=== PATIENT | female | born 1960 | race Caucasian/White ===

== ENCOUNTER → 2023-12-22 | Day surgery (SDC) | payer OTHER | END | disposition home or self-care (01) | LOC: JMAMMO-SUR 09:44 | PROVIDERS: ATTEND Surgery | PROC: BH00ZZZ Plain Radiography of Right Breast (ICD-10-PCS; principal; 2023-12-22) | DX: N63.10 Unspecified lump in the right breast, unspecified quadrant (principal) | CPT/HCPCS: 19281; A4648 ==

== ENCOUNTER 2023-12-25 04:28 | Day surgery (SDC) | payer OTHER ==
[2023-12-23 15:43] VITALS: BMI 27.4
[2023-12-25] MEDS ORDERED: MIDAZOLAM HCL 2 MG/2 ML SINGLE DOSE VIAL ONE (11:36)
[2023-12-25] MEDS ORDERED: FENTANYL CITRATE/PF 50 MCG/ML VIAL ONE (11:36)
[2023-12-25] MEDS ORDERED: PROPOFOL 40 ML ONE (11:59)
[2023-12-25] MEDS ORDERED: SUCCINYLCHOLINE CHLORIDE 200 MG/10 ML SYRINGE ONE (11:59)
[2023-12-25] MEDS ORDERED: ONDANSETRON 4 MG/2 ML VIAL ONE (12:09)
[2023-12-25] MEDS ORDERED: ceFAZolin SODIUM 1 GM VIAL ONE (12:09)
[2023-12-25] MEDS ORDERED: DEXAMETHASONE SOD PHOSPHATE 4 MG/1 ML VIAL ONE (12:09)
[2023-12-25] MEDS: ceFAZolin SODIUM 1 GM VIAL IVPB ONE (12:11)
[2023-12-25] MEDS: LIDOCAINE HCL 1%, 10 MG/ML (20ML VIAL) INF ONE ×2 (12:25)
[2023-12-25] MEDS ORDERED: oxyCODONE HCL 5 MG TABLET PO PRN (13:17)
[2023-12-25] MEDS ORDERED: LACTATED RINGERS SOLUTION 1,000 ML IV SCH (13:30)
[2023-12-25 16:26] VITALS: RESP 18; TEMP 97.8
[2023-12-25 16:45] VITALS: BP 132/64; PULSE 66
== END 2023-12-25 16:50 | disposition home or self-care (01) ==
LOC: JASU-SURG 04:28
PROVIDERS: ATTEND Surgery
PROC: 0HBT0ZX Excision of Right Breast, Open Approach, Diagnostic (ICD-10-PCS; principal; 2023-12-25 11:00)
DX: D05.11 Intraductal carcinoma in situ of right breast (principal)
CPT/HCPCS: 76098-TC-FY; 82962; 88307-TC; 88342-TC; 94760

== ENCOUNTER 2024-01-22 08:11 | Day surgery (SDC) | payer OTHER ==
[2024-01-19 11:57] VITALS: BMI 27.4
[2024-01-22] MEDS ORDERED: MIDAZOLAM HCL 2 MG/2 ML SINGLE DOSE VIAL ONE (08:16)
[2024-01-22] MEDS ORDERED: PROPOFOL 20 ML ONE (08:16)
[2024-01-22] MEDS ORDERED: oxyCODONE HCL 5 MG TABLET PO PRN (08:24)
[2024-01-22] MEDS ORDERED: ACETAMINOPHEN 1000 MG/100 ML BAG IVPB PRN (08:24)
[2024-01-22] MEDS ORDERED: LACTATED RINGERS SOLUTION 1,000 ML IV SCH (08:30)
[2024-01-22] MEDS ORDERED: SEVOFLURANE 250 ML BTL ONE (09:09)
[2024-01-22] MEDS ORDERED: LIDOCAINE HCL/PF 2% SDV 5ML VIAL ONE (09:10)
[2024-01-22] MEDS ORDERED: DEXAMETHASONE SOD PHOSPHATE 4 MG/1 ML VIAL ONE (09:10)
[2024-01-22] MEDS ORDERED: ONDANSETRON 4 MG/2 ML VIAL ONE ×2 (09:10→12:13)
[2024-01-22] MEDS ORDERED: ceFAZolin SODIUM 1 GM VIAL ONE (09:20)
[2024-01-22] MEDS: LIDOCAINE HCL 1%, 10 MG/ML (20ML VIAL) NR ONE (09:25)
[2024-01-22] MEDS ORDERED: FENTANYL CITRATE/PF 50 MCG/ML VIAL ONE ×2 (10:58→11:16)
[2024-01-22] MEDS: ONDANSETRON 4 MG/2 ML VIAL IVPUSH PRN (12:15)
[2024-01-22] MEDS: HALOPERIDOL LACTATE 5 MG/ML IVPUSH ONE (12:45)
[2024-01-22] MEDS ORDERED: HALOPERIDOL LACTATE 5 MG/ML IVPUSH ONE (13:00)
[2024-01-22 13:05] VITALS: RESP 20
[2024-01-22 15:58] VITALS: BP 128/66; PULSE 65; TEMP 97.7
== END 2024-01-22 13:30 | disposition home or self-care (01) ==
LOC: FASU 08:11
PROVIDERS: ATTEND Surgery
PROC: 0HBT0ZZ Excision of Right Breast, Open Approach (ICD-10-PCS; principal; 2024-01-22 09:26)
DX: D05.11 Intraductal carcinoma in situ of right breast (principal); N60.21 Fibroadenosis of right breast; N60.31 Fibrosclerosis of right breast; N60.81 Other benign mammary dysplasias of right breast; N60.91 Unspecified benign mammary dysplasia of right breast; N64.89 Other specified disorders of breast; R92.8 Other abnormal and inconclusive findings on diagnostic imaging of breast
CPT/HCPCS: 82962; 88307-TC; 94760

== ENCOUNTER 2024-02-05 05:01 | Day surgery (SDC) | payer OTHER ==
[2024-02-03 11:59] VITALS: BMI 27.4
[2024-02-05] MEDS ORDERED: LIDOCAINE HCL 1%, 10 MG/ML (20ML VIAL) ONE (07:27)
[2024-02-05] MEDS ORDERED: BUPIVACAINE HCL/PF 0.5% (5MG/ML) 10 ML VIAL ONE (07:28)
[2024-02-05] MEDS ORDERED: LIDOCAINE 1%/EPI 1:100000 (20 ML MULTI DOSE VIAL) ONE (07:28)
[2024-02-05] MEDS ORDERED: LIDOCAINE HCL/PF 2% SDV 5ML VIAL ONE (07:40)
[2024-02-05] MEDS ORDERED: PROPOFOL 20 ML ONE (07:41)
[2024-02-05] MEDS ORDERED: MIDAZOLAM HCL 2 MG/2 ML SINGLE DOSE VIAL ONE (07:41)
[2024-02-05] MEDS: LIDOCAINE HCL 1%, 10 MG/ML (20ML VIAL) INF ONE ×3 (07:45→08:15)
[2024-02-05] MEDS: ceFAZolin SODIUM 1 GM VIAL IVPB ONE ×2 (07:45→08:04)
[2024-02-05] MEDS ORDERED: ONDANSETRON 4 MG/2 ML VIAL ONE (08:04)
[2024-02-05] MEDS ORDERED: DEXAMETHASONE SOD PHOSPHATE 4 MG/1 ML VIAL ONE (08:04)
[2024-02-05] MEDS ORDERED: ceFAZolin SODIUM 1 GM VIAL ONE (08:04)
[2024-02-05] MEDS ORDERED: KETOROLAC TROMETHAMINE 30 MG/1 ML VIAL ONE (08:04)
[2024-02-05] MEDS ORDERED: oxyCODONE HCL 5 MG TABLET PO PRN ×2 (09:44)
[2024-02-05] MEDS ORDERED: PROMETHAZINE HCL 25 MG/1 ML VIAL IVPB PRN (09:44)
[2024-02-05] MEDS ORDERED: ONDANSETRON 4 MG/2 ML VIAL IVPUSH PRN (09:44)
[2024-02-05] MEDS ORDERED: LACTATED RINGERS SOLUTION 1,000 ML IV SCH (09:45)
[2024-02-05] MEDS ORDERED: ACETAMINOPHEN INJECTION 100 ML IVPB ONE (11:26)
[2024-02-05] MEDS: ACETAMINOPHEN 1000 MG/100 ML BAG IVPB ONE (11:31)
[2024-02-05 12:43] VITALS: BP 129/62; PULSE 72; RESP 17; TEMP 98.3
== END 2024-02-05 13:00 | disposition home or self-care (01) ==
LOC: JASU-SURG 05:01
PROVIDERS: ATTEND Surgery
PROC: 0HBT0ZZ Excision of Right Breast, Open Approach (ICD-10-PCS; principal; 2024-02-05 08:00)
DX: D05.11 Intraductal carcinoma in situ of right breast (principal)
CPT/HCPCS: 82962; 88305-TC; 88307-TC; 94760; J0131

== ENCOUNTER 2024-06-18 05:00 | Day surgery (SDC) | payer OTHER ==
[2024-06-16 16:59] VITALS: BMI 28.0
[2024-06-18] MEDS ORDERED: LIDOCAINE HCL 1%, 10 MG/ML (20ML VIAL) ONE (07:46)
[2024-06-18] MEDS: ceFAZolin SODIUM 1 GM VIAL IVPB ONE (08:25)
[2024-06-18] MEDS: LIDOCAINE HCL 1%, 10 MG/ML (50 mL VIAL) NR ONE (08:26)
[2024-06-18] MEDS ORDERED: LACTATED RINGERS SOLUTION 1,000 ML IV SCH (09:30)
[2024-06-18] MEDS: ACETAMINOPHEN 1000 MG/100 ML BAG IVPB ONE (11:05)
[2024-06-18 11:33] VITALS: RESP 18
[2024-06-18 12:50] VITALS: BP 136/66; PULSE 77; TEMP 98
== END 2024-06-18 12:20 | disposition home or self-care (01) ==
LOC: JASU-SURG 05:00
PROVIDERS: ATTEND Surgery
PROC: 0HBT0ZZ Excision of Right Breast, Open Approach (ICD-10-PCS; principal; 2024-06-18 08:00)
DX: D05.11 Intraductal carcinoma in situ of right breast (principal)
CPT/HCPCS: 82962; 88307-TC; 94760; J0131